=== PATIENT | male | born 2005 | race African-American/Black ===

== ENCOUNTER 2025-01-07 12:38 | Inpatient (IN) ==
--- NOTE | 2025-01-07 13:46 | Emergency Department Note ---
Impression & Plan Cellulitis of right hand ED Provider Note CHIEF COMPLAINT: Right hand pain, redness and swelling x 1 day HISTORY OF PRESENT ILLNESS: Patient is a healthy [id number] 19-year-old male who presents to the emergency department for evaluation of right hand pain, redness and swelling. He was playing basketball 2 days ago and was accidentally scratched on his hand by a friend's fingernail. The scratch was not very serious, he does note that he wiped off with an alcohol wipe and have been putting a Band-Aid over top of it. He has been washing his hands and showering normally. He was fine until yesterday, when he did dishes for his brother. About an hour after that, he notes the pain, redness and swelling in the right hand started. It progressively worsened and is now radiating towards his wrist. It hurts to move his fingers. He has aching in his forearm. He admits to fatigue and headache, but denies fever. No prior history of skin infections, abscesses, cellulitis or known MRSA. He has tried ice on the area. He rates his pain a 9/10. REVIEW OF SYSTEMS: Review of systems as per HPI. All other systems reviewed were negative. 10 systems reviewed. PMH: External medical records are reviewed and summarized as above/below. See Problem List. Vaccinations are up-to-date. SOCIAL HISTORY: Patient is a [employer] student from [place]. Lives in the dorm. PHYSICAL EXAM: Vital Signs: Reviewed Nurse's notes. CONSTITUTIONAL: Patient is a nontoxic, but uncomfortable appearing 19-year-old male laying on the gurney. Mildly tachycardic, but normotensive and afebrile. HEART: Regular rate and rhythm. LUNGS: Clear to auscultation. MUSCULOSKELETAL/INTEGUMENTARY: Examination of the right upper extremity notes a scabbed over abrasion on the dorsal aspect of the hand, over the fifth MCP. There is erythema, swelling and warmth of the dorsum of the hand, from the fifth metacarpal to the third metacarpal and is starting to involve the proximal aspect of the third, fourth and fifth fingers. The erythema/swelling extends onto the palmar aspect of the hand, ulnar side and to the dorsum of the wrist. There is palpable warmth in the dorsum and volar aspect of the forearm, with faint erythema noted dorsally, there is lymphangitic streaking on the volar aspect of the forearm, up to the biceps region. There is lymphangitic streaking up the dorsal aspect of the forearm toward the elbow. Right elbow is nontender to palpation. No elbow joint effusion is noted. Elbow flexion and extension and forearm pronation and supination are full. There is discomfort, but full flexion and extension at the wrist. Patient can flex fingers almost fully, cannot actively extend fully, but can be passively extended fully. Radial and ulnar pulses are easily palpable. Sensation light touch is intact. EMERGENCY DEPARTMENT COURSE: The patient was seen and assessed as above. External medical records are reviewed. He presents to the emergency department for evaluation of erythema, swelling and warmth of the right hand/wrist that is radiating up the forearm, after being scratched on the hand a couple of days ago. He notes that his symptoms actually just started yesterday after washing dishes. He does have a fairly extensive cellulitis involving the hand/wrist, with streaking up to the biceps region. IV lock was initiated. Laboratory studies were collected including CBC with differential, CMP, lactate and blood cultures x 2. He was treated with IV Toradol, Zofran and morphine for pain and given ceftriaxone 2 g IV with Bactrim DS [address] of the right hand with IV contrast was obtained. Patient reviewed with attending physician, Dr. Rios who agreed with the ED workup. I did take a surface wound culture from the wound on the right hand which is pending. Diagnostics, as interpreted by me: Laboratory studies: Marked leukocytosis with a white count of 27,300. No electrolyte imbalance, MELISSA or transaminitis. Lactate is normal. Cardiac monitoring: An order was placed for continuous cardiac monitoring. The monitor shows a NSR at a rate of 75 per my interpretation. Imaging studies: CT scan with IV contrast of the right hand notes soft tissue swelling, but no abscess, no osteomyelitis. Patient was reassessed. Laboratory and diagnostic imaging studies were reviewed with him. He was feeling improved with the IV morphine and Toradol, rated his pain a 6/10 on reassessment. Patient reviewed with ED transplant case manager. Given the location and degree of cellulitis involving the right hand/upper extremity, I did recommend admission/observation for IV antibiotics and the patient was agreeable. Consultation placed with the [facility] Hospitalist Service. Patient discussed with Dr. Rojas. Differential diagnosis: cellulitis, abscess, necrotizing fasciitis, infectious tenosynovitis, DVT, superficial thrombophlebitis, osteomyelitis, among others. Past Med/Surg History Problem List (Updated 01/07/25 @ 15:45 by James Awad) Cellulitis of right hand (Acute) Medical History No significant past medical history Surgical History No history of previous surgery Social History Smoking Status: Never smoker Second Hand Exposure: Yes; Do You Dip or Chew Tobacco: No; Hx Alcohol Use: Yes (few times per month) Alcohol type: beer, wine and hard liquor Hx Substance Use: No (denies) Preferred Language: Frisian Communication Ability: Effective Human Relations Teacher Required: No Beliefs That Will Affect Care: None Current Living Situation: Other Feels Safe at Home: Yes Safety Concerns: Feels Safe At This Time Assistive Devices: None Allergies Allergies Allergy/AdvReac Type Severity Reaction Status Date / Time amoxicillin Allergy Mild Rash Verified 01/07/25 17:07 Home Meds Home Medications Medication Instructions Recorded Confirmed multivitamin with minerals-folic 1 tab PO DAILY 01/07/25 01/07/25 acid 200 mcg chewable tablet (Multivitamin Gummies) Results & Data (ED) Vital Signs Vital Signs - 24 hr 01/07/25 12:48 01/07/25 14:04 01/07/25 14:04 Temperature 36.8 C Temperature Source Temporal Artery Scan Pulse Rate 97 H Pulse Rate [Finger] Respiratory Rate 16 Respiratory Effort / Characteristics Non-Labored Non-Labored Respiratory Depth Normal Normal Respiratory Pattern Regular Blood Pressure 124/67 Blood Pressure [Left Arm] Blood Pressure Mean 86 Blood Pressure Mean [Left Arm] Blood Pressure Position Sitting Blood Pressure Position [Left Arm] Pulse Oximetry 100 Oxygen Delivery Method Room Air Room Air Sepsis Recent Fever Within 48 Hours No Sepsis New/Unexplained Change in Mental Status N/A Sepsis Action Taken by Nursing No Action Required 01/07/25 16:00 Temperature Temperature Source Pulse Rate Pulse Rate [Finger] 75 Respiratory Rate 20 Respiratory Effort / Characteristics Non-Labored Respiratory Depth Normal Respiratory Pattern Regular Blood Pressure Blood Pressure [Left Arm] 132/81 Blood Pressure Mean Blood Pressure Mean [Left Arm] 98 Blood Pressure Position Blood Pressure Position [Left Arm] Lying Pulse Oximetry 100 Oxygen Delivery Method Room Air Sepsis Recent Fever Within 48 Hours Sepsis New/Unexplained Change in Mental Status Sepsis Action Taken by Senior Care Medications Current Medication List: was personally reviewed by me Laboratory Data Attestation: I reviewed the patient's lab results. 01/07/25 13:44 01/07/25 13:44 Lab Results 01/07/25 01/07/25 Range/Units 13:44 14:00 WBC 27.33 H (4.8-10.8) K/ul RBC 4.89 (4.70-6.10) M/uL Hgb 14.4 (14.0-18.0) g/dl Hct 42.9 (42.0-52.0) % MCV 87.7 (80.0-100.0) fL MCH 29.4 (25.0-34.0) pg MCHC 33.6 (32.0-36.0) g/dL RDW Std Deviation 42.5 (36.4-46.3) fL RDW Coeff of Diomedes 13.2 (11.5-14.5) % Plt Count 302 (130-400) K/uL MPV 9.1 L (9.4-12.4) fL Immature Gran % (Auto) 1.3 % Neut % (Auto) 83.6 % Lymph % (Auto) 7.8 % [place] % (Auto) 6.8 % Eos % (Auto) 0.1 % Baso % (Auto) 0.4 % Neut # (Auto) 22.88 H (1.40-6.50) K/uL Lymph # (Auto) 2.12 (1.20-3.40) K/uL [place] # (Auto) 1.85 H (0.11-0.59) K/uL Eos # (Auto) 0.03 (0.00-0.50) K/uL Baso # (Auto) 0.10 (0.00-0.20) K/uL Immature Gran # (Auto) 0.35 H (0.01-0.20) K/uL Sodium 136 (136-145) mmol/L Potassium 3.5 (3.5-5.1) mmol/L Chloride 101 (98-107) mmol/L Carbon Dioxide 27 (21-32) mmol/L Anion Gap 8 (3-11) BUN 14 (6-23) mg/dl Creatinine 1.06 (0.6-1.4) mg/dl Est Cr Clr Drug Dosing 130.3 ml/min eGFR 103.68 BUN/Creatinine Ratio 13.2 (10-20) Glucose 96 (70-99(Fasting)) mg/dl Lactate 1.4 (0.4-2.0) mmol/L Calcium 9.6 (8.6-10.3) mg/dl Total Bilirubin 1.1 H (0.2-1.0) mg/dl AST 30 (13-39) U/L ALT 43 (7-52) U/L Alkaline Phosphatase 46 (34-104) U/L Total Protein 8.3 (6.0-8.3) gm/dl Albumin 4.3 (3.4-5.0) gm/dl Globulin 4.0 (2.5-4.0) gm/dl Albumin/Globulin Ratio 1.1 (0.9-2) Administered Medications Discontinued Medications Ceftriaxone Sodium (Rocephin) 2,000 mg in 50 mls @ 100 mls/hr IV NOW STA Stop: 01/07/25 13:57 Last Infusion: 01/07/25 14:45 Dose: Infused Documented By: Admin: 01/07/25 14:13 Dose: 100 mls/hr Documented By: HEENA Ioversol (Optiray 320 100ml) 93 ml IV ONCE ONE Stop: 01/07/25 14:58 Last Admin: 01/07/25 14:58 Dose: 93 ml Documented By: OSVALDO Ketorolac Tromethamine (Ketorolac Tromethamine 15 Mg/Ml Vial) 15 mg IV NOW STA Stop: 01/07/25 13:53 Last Admin: 01/07/25 14:04 Dose: 15 mg Documented By: HEENA Metronidazole (Metronidazole 500 Mg Tab) 500 mg PO NOW STA; Protocol Stop: 01/07/25 16:11 Last Admin: 01/07/25 16:19 Dose: 500 mg Documented By: CANDY Morphine Sulfate (Morphine Sulfate 4 Mg/Ml 1 Ml Carp\Vial) 4 mg IV NOW STA Stop: 01/07/25 13:53 Last Admin: 01/07/25 14:03 Dose: 4 mg Documented By: HEENA Ondansetron HCl (Ondansetron Inj 2 Mg/Ml 2 Ml Vial) 4 mg IV NOW STA Stop: 01/07/25 13:53 Last Admin: 01/07/25 14:04 Dose: 4 mg Documented By: HEENA Trimethoprim/Sulfamethoxazole (Sulfamethoxazole/Trimethoprim Ds 800/160mg Tab) 2 tab PO NOW ONE Stop: 01/07/25 13:29 Last Admin: 01/07/25 14:13 Dose: 2 tab Documented By: HEENA Imaging Data Attestation: I personally reviewed and interpreted this imaging study as follows: Radiologist's Impression: Hand CT 01/07/25 13:28 CT hand RT w con CLINICAL HISTORY: EVAL ABSCESS COMPARISON STUDY: None FINDINGS: There is diffuse soft tissue edema at the dorsal wrist and hand without focal abscess. No hematoma seen. No fracture or dislocation. No osteomyelitis seen. No foreign body seen. IMPRESSION: No soft tissue abscess seen. ACT 112: Negative or not required by law. Electronically signed by: Jeancarlos Martinez M.D. 01/07/2025 3:29 PM Discharge Plan Visit Data Chief Complaint: Hand Injury/Pain Stated Complaint: R HAND INJURY ED Provider: Jeffy Rios ED Midlevel Provider: James Awad Discharge Problem: Cellulitis of right hand Patient Disposition: Admitted As Inpatient Discharge Instructions Interventions: ED Discharge Assessment Last Done: 01/07/25 17:27
[2025-01-07] MEDS: MoRPHine SULFATE 4 MG/ML 1 ML CARP\\VIAL IV STA (14:03)
[2025-01-07] MEDS: ONDANSETRON INJ 2 MG/ML 2 ML VIAL IV STA (14:04)
[2025-01-07] MEDS: KETOROLAC TROMETHAMINE 15 MG/ML VIAL IV STA (14:04)
[2025-01-07 14:07] LABS: Hematocrit (blood only) 42.9 % (42.0-52.0); Hemoglobin 14.4 g/dl (14.0-18.0); Mean Corpuscular Hemoglobin 29.4 pg (25.0-34.0); Mean Corpuscular Hgb Conc 33.6 g/dL (32.0-36.0); Mean Corpuscular Volume 87.7 fL (80.0-100.0); Mean Platelet Volume 9.1 fL (9.4-12.4); Platelet Count 302 K/uL (130-400); RDW Coefficient of Variation 13.2 % (11.5-14.5); RDW Standard Deviation 42.5 fL (36.4-46.3); Red Blood Count 4.89 M/uL (4.70-6.10); White Blood Count 27.33 K/ul (4.8-10.8)
[2025-01-07] MEDS: cefTRIAXone SODIUM 2,000 MG/50 ML BAG IV STA (14:13)
[2025-01-07] MEDS: SULFAMETHOXAZOLE/TRIMETHOPRIM DS 800/160MG TAB PO ONE (14:13)
[2025-01-07 14:29] LABS: Albumin Globulin Ratio 1.1 (0.9-2); Albumin Level 4.3 gm/dl (3.4-5.0); BUN Creatinine Ratio 13.2 (10-20); Bilirubin,Total 1.1 mg/dl (0.2-1.0); Calcium 9.6 mg/dl (8.6-10.3); Creatinine Clr Calc Pharmacy 130.3 ml/min; Potassium 3.5 mmol/L (3.5-5.1); Total Protein 8.3 gm/dl (6.0-8.3)
[2025-01-07 14:31] LABS: Basophils % (auto) 0.4 %; Eosinophils # (auto) 0.03 K/uL (0.00-0.50); Eosinophils % (auto) 0.1 %; Immature Granulocytes # (auto) 0.35 K/uL (0.01-0.20); Immature Granulocytes % (auto) 1.3 %; Lymphocytes # (auto) 2.12 K/uL (1.20-3.40); Lymphocytes % (auto) 7.8 %; Monocytes # (auto) 1.85 K/uL (0.11-0.59); Monocytes % (auto) 6.8 %; Neutrophils # (auto) 22.88 K/uL (1.40-6.50); Neutrophils % (auto) 83.6 %
[2025-01-07] MEDS: OPTIRAY 320 100ml IV ONE (14:58)
--- NOTE | 2025-01-07 15:30 | CT Scan Report ---
CT hand RT w con CLINICAL HISTORY: EVAL ABSCESS COMPARISON STUDY: None FINDINGS: There is diffuse soft tissue edema at the dorsal wrist and hand without focal abscess. No h ematoma seen. No fracture or dislocation. No osteomyelitis seen. No foreign body seen. IMPRESSION: No soft tissue abscess seen. ACT 112: Negative or not required by law. Electronically signed by: Jeancarlos Martinez M.D. 01/07/2025 3:29 PM
--- NOTE | 2025-01-07 16:16 | History & Physical Report ---
Date of Service January 07, 2025 Assessment & Plan (1) Cellulitis of right hand: Plan: Cellulitis of right hand in a 19 yo male from a human finger nail scratch admit to medical ordered clindamycin/rocephin for tomorrow ED ordered rocephin and bactrim will add flagy for today for anaerobic coverage. will monitor. Patient with leukocytosis. CT scan showed no abscess. History of Present Illness Chief Complaint: Right hand swelling Primary Care Provider: NO PCP Patient reports getting scratched by an opposing player's nail while playing basketball 2 days ago. He reports he was trying to keep it clean with rubbing alcohol. However he continued to use the hand for chores like washing dishes. He states the swelling and the pain has worsened where he is having pain moving his digits. Given this complication patient came to the ED. He admits to headache and fatigue. Allergies Allergy/AdvReac Type Severity Reaction Status Date / Time amoxicillin Allergy Mild Rash Verified 01/07/25 17:07 Home Medications Medication Instructions Recorded Confirmed Type multivitamin with minerals-folic 1 tab PO DAILY 01/07/25 01/07/25 History acid 200 mcg chewable tablet (Multivitamin Gummies) Past Med/Surg History Problem List Cellulitis of right hand (Acute) Medical History No significant past medical history Surgical History No history of previous surgery Social History Smoking Status: Never smoker Second Hand Exposure: Yes; Do You Dip or Chew Tobacco: No; Hx Alcohol Use: Yes (few times per month) Alcohol type: beer, wine and hard liquor Hx Substance Use: No (denies) Preferred Language: Arabic Communication Ability: Effective Marketing Ambassador Required: No Beliefs That Will Affect Care: None Current Living Situation: Other Feels Safe at Home: Yes Safety Concerns: Feels Safe At This Time Assistive Devices: None Review of Systems Constitutional: + fever and + malaise; no body aches Eyes: no blind spots Ear, Nose, Mouth, Throat: no ear pain and no tinnitus Respiratory: no cough Cardiovascular: no chest pain Gastrointestinal: no abdominal pain Musculoskeletal: no back pain Integumentary: no acne Neurologic: no gait abnormality Psychiatric: no behavioral changes Endocrine: no fatigue Physical Exam Constitutional: WD/WN, vitals as above Eyes: PERRL, conjunctivae normal, anicteric sclerae ENMT: external ear and nose normal, oropharynx normal Neck: trachea midline, no thyromegaly Respiratory: normal respiratory effort, lungs clear to auscultation Cardiovascular: RRR, no murmur, no edema Gastrointestinal (Abdomen): normal bowel sounds, soft, nontender, no hepatosplenomegaly Musculoskeletal: Right hand swelling Neurologic: PERRL, EOMI, accommodation nl, no face palsy, no dysarthria Psychiatric: A+Ox3, euthymic affect Results & Data Results & Data Vital Signs (Past 12 Hours) Vital Signs Temp Pulse Pulse Resp BP BP Pulse Ox 01/07/25 16:00 75 20 132/81 100 01/07/25 14:04 01/07/25 12:48 36.8 C 97 H 16 124/67 100 O2 Del Method 01/07/25 16:00 Room Air 01/07/25 14:04 Room Air 01/07/25 12:48 Room Air PG Care Time/CCT Total # of Minutes Spent Total Time Spent with Patient: Total time spent is greater than 50% in coordination of care (as documented) at patient's floor/unit and/or counseling patient: Coding Level of Care Code 92735 INT INP/OBS CARE 3/75MIN Diagnoses Cellulitis of right hand L03.113
[2025-01-07] MEDS: metroNIDAZOLE 500 MG TAB PO STA (16:19)
[2025-01-07] MEDS: ACETAMINOPHEN 325 MG TAB PO PRN (20:51)
[2025-01-08] MEDS: CLINDAMYCIN/D5W 600 MG/50 ML BAG IV SCH (02:09)
[2025-01-08 06:51] LABS: Hematocrit (blood only) 41.8 % (42.0-52.0); Hemoglobin 13.9 g/dl (14.0-18.0); Mean Corpuscular Hemoglobin 29.3 pg (25.0-34.0); Mean Corpuscular Hgb Conc 33.3 g/dL (32.0-36.0); Mean Platelet Volume 9.1 fL (9.4-12.4); Platelet Count 275 K/uL (130-400); Red Blood Count 4.75 M/uL (4.70-6.10); White Blood Count 21.82 K/ul (4.8-10.8)
[2025-01-08 07:17] LABS: BUN Creatinine Ratio 13.9 (10-20); C Reactive Protein 19.2 mg/dl (0-0.5); Calcium 9.1 mg/dl (8.6-10.3); Creatinine Clr Calc Pharmacy 120.1 ml/min; Potassium 3.8 mmol/L (3.5-5.1)
--- NOTE | 2025-01-08 10:51 | Orthopedic Consultation ---
Date of Consultation January 08, 2025 Assessment & Plan (1) Cellulitis of right hand: WBC trending downward from 27.88 to 21.82 CRP elevated at 19.20 Gram stain show Gram+ Cocci Wound cultures and blood cultures still pending Recommend continuation of IV ABX order by medicine service Pain control with IV or PO meds CT scan shows no abscess No surgical intervention indicated May need ID consult Ortho will sign off on patient. Supervising Physician Co-Signing Physician Notes I reviewed the patient's CT scan, discussed his case with Dr. Rojas, formulated the above plan, and performed the substantive portion of the visit. Agree with above note. Medical treatment for cellulitis. No surgery indicated. History of Present Illness Reason for Consultation: Right hand cellulitis Requesting Physician: Juan C Hurley MD Attending Physician: Hayder Rojas History of Present Illness This 19 yo M is seen for consultation for Right hand cellulitis. Patient states that he was playing basketball on Saturday and was accidentally scratched on his hand by a friend's fingernail. The scratch was not very serious, he does note that he wiped off with an alcohol wipe and have been putting a Band-Aid over top of it. He has been washing his hands and showering normally. He was fine until Saturday evening, when he did dishes for his brother. About an hour after that, he notes the pain, redness and swelling in the right hand started. It progressively worsened and is now radiating towards his wrist. It hurts to move his fingers. He has aching in his forearm. Patient states that he did initially have a headache and fatigue, which have resolved. He denies fever, chills, sweat, nausea or vomiting. He is also complaining that he has noticed so slight tingling in the tips of his finger, as time. It is not constant. No prior history of skin infections, abscesses, cellulitis or known MRSA. He has tried ice on the area. Allergies Allergy/AdvReac Type Severity Reaction Status Date / Time amoxicillin Allergy Mild Rash Verified 01/07/25 17:07 Home Medications Medication Instructions Recorded Confirmed Type multivitamin with minerals-folic 1 tab PO DAILY 01/07/25 01/07/25 History acid 200 mcg chewable tablet (Multivitamin Gummies) Patient History Medical History No significant past medical history Surgical History No history of previous surgery Social History Smoking Status: Never smoker Second Hand Exposure: Yes; Do You Dip or Chew Tobacco: No; Hx Alcohol Use: Yes (few times per month) Alcohol type: beer, wine and hard liquor Hx Substance Use: No (denies) Preferred Language: Lao Communication Ability: Effective Equipment Operator [employer] Required: No Beliefs That Will Affect Care: None Current Living Situation: Other Feels Safe at Home: Yes Safety Concerns: Feels Safe At This Time Assistive Devices: None Review of Systems Review of Systems: All systems reviewed & are unremarkable except as noted in Subjective Physical Exam Physical Exam: Right hand: 1 cm x 1 cm superficial abrasion over dorsal surface of 5th MCP. Edema, erythema and warmth from base of digits to wrist on dorsal surface. Limitations with wrist flexion and extension. Mild discomfort the passive ulnar and radial deviation, as well as with pronation and supination. Able to detect light sensation to touch over pads of digits. Appropriate finger dexterity. Able to resist compression of digits 2-5 and pincer grasp between thumb and index finger. Periph pulses 2+. NV intact. Results & Data Vital Signs (Past 12 Hours) Vital Signs Temp Pulse Resp BP Pulse Ox O2 Del Method 01/08/25 08:20 38.2 C H 87 18 144/80 H 98 Room Air Diagnostic Findings Laboratory Results WBC 21.82 K/ul (4.8-10.8) H 01/08/25 06:35 RBC 4.75 M/uL (4.70-6.10) 01/08/25 06:35 Hgb 13.9 g/dl (14.0-18.0) L 01/08/25 06:35 Hct 41.8 % (42.0-52.0) L 01/08/25 06:35 MCV 88.0 fL (80.0-100.0) 01/08/25 06:35 MCH 29.3 pg (25.0-34.0) 01/08/25 06:35 MCHC 33.3 g/dL (32.0-36.0) 01/08/25 06:35 RDW Std Deviation 42.0 fL (36.4-46.3) 01/08/25 06:35 RDW Coeff of Diomedes 13.0 % (11.5-14.5) 01/08/25 06:35 Plt Count 275 K/uL (130-400) 01/08/25 06:35 MPV 9.1 fL (9.4-12.4) L 01/08/25 06:35 Immature Gran % (Auto) 1.3 % 01/07/25 13:44 Neut % (Auto) 83.6 % 01/07/25 13:44 Lymph % (Auto) 7.8 % 01/07/25 13:44 [place] % (Auto) 6.8 % 01/07/25 13:44 Eos % (Auto) 0.1 % 01/07/25 13:44 Baso % (Auto) 0.4 % 01/07/25 13:44 Neut # (Auto) 22.88 K/uL (1.40-6.50) H 01/07/25 13:44 Lymph # (Auto) 2.12 K/uL (1.20-3.40) 01/07/25 13:44 [place] # (Auto) 1.85 K/uL (0.11-0.59) H 01/07/25 13:44 Eos # (Auto) 0.03 K/uL (0.00-0.50) 01/07/25 13:44 Baso # (Auto) 0.10 K/uL (0.00-0.20) 01/07/25 13:44 Immature Gran # (Auto) 0.35 K/uL (0.01-0.20) H 01/07/25 13:44 Sodium 134 mmol/L (136-145) L 01/08/25 06:35 Potassium 3.8 mmol/L (3.5-5.1) 01/08/25 06:35 Chloride 101 mmol/L (98-107) 01/08/25 06:35 Carbon Dioxide 27 mmol/L (21-32) 01/08/25 06:35 Anion Gap 6 (3-11) 01/08/25 06:35 BUN 16 mg/dl (6-23) 01/08/25 06:35 Creatinine 1.15 mg/dl (0.6-1.4) 01/08/25 06:35 Est Cr Clr Drug Dosing 120.1 ml/min 01/08/25 06:35 eGFR 94.02 01/08/25 06:35 BUN/Creatinine Ratio 13.9 (10-20) 01/08/25 06:35 Glucose 92 mg/dl (70-99(Fasting)) 01/08/25 06:35 Lactate 1.4 mmol/L (0.4-2.0) 01/07/25 14:00 Calcium 9.1 mg/dl (8.6-10.3) 01/08/25 06:35 Total Bilirubin 1.1 mg/dl (0.2-1.0) H 01/07/25 13:44 AST 30 U/L (13-39) 01/07/25 13:44 ALT 43 U/L (7-52) 01/07/25 13:44 Alkaline Phosphatase 46 U/L (34-104) 01/07/25 13:44 C-Reactive Protein 19.20 mg/dl (0-0.5) H 01/08/25 06:35 Total Protein 8.3 gm/dl (6.0-8.3) 01/07/25 13:44 Albumin 4.3 gm/dl (3.4-5.0) 01/07/25 13:44 Globulin 4.0 gm/dl (2.5-4.0) 01/07/25 13:44 Albumin/Globulin Ratio 1.1 (0.9-2) 01/07/25 13:44 Procalcitonin 2.61 ng/ml (0-0.5) H 01/08/25 06:[address] 01/07/25 13:28 CT hand RT w con CLINICAL HISTORY: EVAL ABSCESS COMPARISON STUDY: None FINDINGS: There is diffuse soft tissue edema at the dorsal wrist and hand without focal abscess. No hematoma seen. No fracture or dislocation. No osteomyelitis seen. No foreign body seen. IMPRESSION: No soft tissue abscess seen. ACT 112: Negative or not required by law. Electronically signed by: Jeancarlos Martinez M.D. 01/07/2025 3:29 PM
--- NOTE | 2025-01-08 11:23 | Hospitalist Progress Note ---
Date of Service January 08, 2025 Assessment & Plan (1) Cellulitis of right hand: Plan: Cellulitis of right hand in a 19 yo male from a human finger nail scratch admit to medical Increased dose of clindamycin to 900 mg IV q8h continue rocephin daily. Leukocytosis is improving. but remains over 21k discussed with ortho, no intervention required. CT scan showed no abscess. will add probiotics. Admission and Anticipated Discharge Date Admission Date: January 07, 2025 Subjective 19 y male asking when he can be discharged. He reports he is able to move his fingers more than yesterday and his pain is better today. Physical Exam Constitutional: WD/WN, vitals as above Eyes: PERRL, conjunctivae normal, anicteric sclerae ENMT: external ear and nose normal, oropharynx normal Neck: trachea midline, no thyromegaly Respiratory: normal respiratory effort, lungs clear to auscultation Cardiovascular: RRR, no murmur, no edema Musculoskeletal: Right hand remains with swelling along the dorsal aspect of the hand. Normal sensation. Apear to move fingers more freely. Results & Data Results & Data Vital Signs (Past 12 Hours) Vital Signs Temp Pulse Resp BP Pulse Ox O2 Del Method 01/08/25 08:20 38.2 C H 87 18 144/80 H 98 Room Air PG Care Time/CCT Total # of Minutes Spent Total Time Spent with Patient: Total time spent is greater than 50% in coordination of care (as documented) at patient's floor/unit and/or counseling patient: Coding Level of Care Code 28193 SUB INP/OBS CARE 3/50MIN Diagnoses Cellulitis of right hand L03.113
[2025-01-08] MEDS: CLINDAMYCIN/D5W 900 MG/50 ML BAG IV SCH (11:41)
[2025-01-08] MEDS: ADVANCED PROBIOTIC 625 MG CAPSULE PO SCH (12:34)
[2025-01-08] MEDS: cefTRIAXone SODIUM 2,000 MG/50 ML BAG IV SCH (13:58)
[2025-01-09 07:07] LABS: Hemoglobin 13.1 g/dl (14.0-18.0); Mean Corpuscular Hemoglobin 29.4 pg (25.0-34.0); Mean Corpuscular Hgb Conc 33.6 g/dL (32.0-36.0); Mean Corpuscular Volume 87.4 fL (80.0-100.0); Mean Platelet Volume 9.7 fL (9.4-12.4); Platelet Count 289 K/uL (130-400); RDW Coefficient of Variation 12.9 % (11.5-14.5); RDW Standard Deviation 41.1 fL (36.4-46.3); Red Blood Count 4.46 M/uL (4.70-6.10); White Blood Count 18.15 K/ul (4.8-10.8)
[2025-01-09 07:39] LABS: BUN Creatinine Ratio 11.9 (10-20); C Reactive Protein 16.66 mg/dl (0-0.5); Calcium 9.1 mg/dl (8.6-10.3); Creatinine Clr Calc Pharmacy 164.5 ml/min; Potassium 3.8 mmol/L (3.5-5.1)
[2025-01-09] MEDS ORDERED: DAPTOmycin 500 MG in SYRINGE 0 ML IV SCH (10:00)
[2025-01-09] MEDS: ceFAZolin 2000MG 2,000 MG/15 ML SYR IV SCH (10:40)
--- NOTE | 2025-01-09 11:03 | Orthopedic Progress Note ---
Date of Service January 09, 2025 Assessment & Plan (1) Cellulitis of right hand: Plan: Recommend continuation of IV ABX by medicine service Pain control CT scan shows no abscess No surgical intervention indicated. Communicated this to the patient. May need ID consult Ortho will sign off on patient. Admission and Anticipated Discharge Date Admission Date: January 07, 2025 Subjective Patient seen and examined on a.m. rounds. He reports his hands feeling a lot better today. He is able to move his fingers more than he was yesterday. He is wondering how soon he can go home from the hospital. Denies fevers or chills. Physical Exam Physical Exam: Right hand exam reveals the patient have swelling over the dorsum of the hand. He is able to actively extend the fingers to full extension. Cannot quite make a full composite fist with the fingertips about 1 and half centimeters off the palm. Fires wrist extensors and wrist flexors. Neurovascular intact. Small skin abrasion near the fifth metacarpal head without any drainage. Results & Data Vital Signs (Past 12 Hours) Vital Signs Temp Pulse Resp BP Pulse Ox O2 Del Method 01/09/25 07:19 36.6 C 50 L 16 121/83 98 Room Air Laboratory Results White cell count and CRP trending downward. Blood cultures negative to date.
--- NOTE | 2025-01-09 23:16 | Hospitalist Progress Note ---
Date of Service January 09, 2025 Assessment & Plan (1) Cellulitis of right hand: Plan: Cellulitis of right hand in a 19 yo male from a human finger nail scratch admit to medical cultures came back and grew MSSA but resistat to clindamycin. will switch to cefazolin, stop rocephin Leukocytosis is improving. discussed with ortho, no intervention required. CT scan showed no abscess. will add probiotics to limit c diff. Admission and Anticipated Discharge Date Admission Date: January 07, 2025 Subjective 19 yo male reports no new symptoms. Physical Exam Constitutional: WD/WN, vitals as above Eyes: PERRL, conjunctivae normal, anicteric sclerae ENMT: external ear and nose normal, oropharynx normal Neck: trachea midline, no thyromegaly Respiratory: normal respiratory effort, lungs clear to auscultation Cardiovascular: RRR, no murmur, no edema Gastrointestinal (Abdomen): normal bowel sounds, soft, nontender, no hepatosplenomegaly Neurologic: PERRL, EOMI, accommodation nl, no face palsy, no dysarthria Psychiatric: A+Ox3, euthymic affect Results & Data Results & Data Vital Signs (Past 12 Hours) Vital Signs Temp Pulse Resp BP Pulse Ox O2 Del Method 01/09/25 22:22 37.2 C 77 18 135/65 Room Air 01/09/25 15:48 37.2 C 64 16 133/75 98 Room Air PG Care Time/CCT Total # of Minutes Spent Total Time Spent with Patient: Total time spent is greater than 50% in coordination of care (as documented) at patient's floor/unit and/or counseling patient: Coding Level of Care Code 91986 SUB INP/OBS CARE 3/50MIN Diagnoses Cellulitis of right hand L03.113
[2025-01-10 06:26] LABS: Hematocrit (blood only) 39.4 % (42.0-52.0); Hemoglobin 13.4 g/dl (14.0-18.0); Mean Corpuscular Hemoglobin 29.8 pg (25.0-34.0); Mean Corpuscular Volume 87.6 fL (80.0-100.0); Mean Platelet Volume 9.4 fL (9.4-12.4); Platelet Count 321 K/uL (130-400); RDW Standard Deviation 42.1 fL (36.4-46.3); White Blood Count 9.88 K/ul (4.8-10.8)
[2025-01-10 06:47] LABS: BUN Creatinine Ratio 11.5 (10-20); C Reactive Protein 10.3 mg/dl (0-0.5); Creatinine Clr Calc Pharmacy 177.1 ml/min; Potassium 3.7 mmol/L (3.5-5.1)
[2025-01-10 16:10] VITALS: RESP 16; O2SAT 99
--- NOTE | 2025-01-10 16:42 | Hospitalist Progress Note ---
Date of Service January 10, 2025 Assessment & Plan (1) Cellulitis of right hand: Plan: Cellulitis of right hand in a 19 yo male from a human finger nail scratch admit to medical cultures came back and grew MSSA but resistat to clindamycin. will switch to cefazolin, stop rocephin Leukocytosis is improving and normalized discussed with ortho, no intervention required. CT scan showed no abscess. will add probiotics to limit c diff. Swelling and inflammatory markers have decreased. Will continue to monitor. Updated patient's mother at bedside Admission and Anticipated Discharge Date Admission Date: January 07, 2025 Subjective Patient reports no new symptoms. He reports improved hand swelling Physical Exam Constitutional: WD/WN, vitals as above Eyes: PERRL, conjunctivae normal, anicteric sclerae ENMT: external ear and nose normal, oropharynx normal Neck: trachea midline, no thyromegaly Respiratory: normal respiratory effort, lungs clear to auscultation Cardiovascular: RRR, no murmur, no edema Gastrointestinal (Abdomen): normal bowel sounds, soft, nontender, no hepatosplenomegaly Neurologic: PERRL, EOMI, accommodation nl, no face palsy, no dysarthria Psychiatric: A+Ox3, euthymic affect Results & Data Results & Data Vital Signs (Past 12 Hours) Vital Signs Temp Pulse Resp BP Pulse Ox O2 Del Method 01/10/25 16:09 36.6 C 61 16 125/72 99 Room Air 01/10/25 08:26 36.5 C 64 17 124/70 98 Room Air PG Care Time/CCT Total # of Minutes Spent Total Time Spent with Patient: Total time spent is greater than 50% in coordination of care (as documented) at patient's floor/unit and/or counseling patient: Coding Level of Care Code 29669 SUB INP/OBS CARE 3/50MIN Diagnoses Cellulitis of right hand L03.113
[2025-01-11 06:14] LABS: Hemoglobin 12.8 g/dl (14.0-18.0); Mean Corpuscular Hemoglobin 28.8 pg (25.0-34.0); Mean Corpuscular Hgb Conc 32.8 g/dL (32.0-36.0); Mean Corpuscular Volume 87.6 fL (80.0-100.0); Mean Platelet Volume 9.3 fL (9.4-12.4); Platelet Count 335 K/uL (130-400); RDW Coefficient of Variation 12.7 % (11.5-14.5); RDW Standard Deviation 40.7 fL (36.4-46.3); Red Blood Count 4.45 M/uL (4.70-6.10); White Blood Count 6.95 K/ul (4.8-10.8)
[2025-01-11 06:37] LABS: BUN Creatinine Ratio 13.4 (10-20); C Reactive Protein 5.38 mg/dl (0-0.5); Calcium 9.1 mg/dl (8.6-10.3); Creatinine Clr Calc Pharmacy 168.5 ml/min; Potassium 4.1 mmol/L (3.5-5.1)
[2025-01-11 07:12] LABS: Basophils # (auto) 0.11 K/uL (0.00-0.20); Basophils % (auto) 1.6 %; Eosinophils # (auto) 0.53 K/uL (0.00-0.50); Eosinophils % (auto) 7.6 %; Immature Granulocytes # (auto) 0.04 K/uL (0.01-0.20); Immature Granulocytes % (auto) 0.6 %; Lymphocytes # (auto) 2.53 K/uL (1.20-3.40); Lymphocytes % (auto) 36.4 %; Monocytes # (auto) 0.78 K/uL (0.11-0.59); Monocytes % (auto) 11.2 %; Neutrophils # (auto) 2.96 K/uL (1.40-6.50); Neutrophils % (auto) 42.6 %
[2025-01-11 07:48] VITALS: BP 117/64; PULSE 57; TEMP 97.7
--- NOTE | 2025-01-11 09:39 | Infectious Disease Consult ---
Date of Consultation January 11, 2025 Assessment & Plan (1) Cellulitis of right hand: Plan #R hand cellulitis with MSSA 19 yo M who presented on 01/07 with R hand swelling and pain after being scratched by an opposing player's nail while playing basketball 2 days prior, admitted with MSSA cellulitis. MRI hand on 01/11 with extensive dorsal cellulitis of the hand with associated phlegmonous change, no drainable abscess, no tenosynovitis or evidence of acute osteomyelitis. Pt with improving swelling and ROM, resolution of leukocytosis. Recommendations: -Can discharge on cephalexin 500 mg PO q6h for another 7 days (Mother notes he has tolerated cephalexin previously) Discussed with Dr. Rojas. Will sign off. Consultation Information Consultation was provided via telemedicine using two-way real-time interactive telecommunication between the patient and the telemedicine provider. For the duration of the visit, the provider was performing the assessment from a different facility than the patient. This includesuse of bluetooth stethoscope forauscultationperformed by the telepresenter that the telemedicine provider can hear if described in the physical exam. Health Education Director contact information: Please call [facility] . (Phone Number For Physician Use Only) After establishing a telemedicine visit, patient was: Patient was verified with two unique identifiers, Patient/authorized rep acknowledged consent and understanding and Gave permission to continue telehealth session Time Spent with Patient: Initial => 40 min History of Present Illness Reason for Consultation: R hand cellulitis Attending Physician: Hayder Rojas History of Present Illness 19 yo M who presented on 01/07 with R hand swelling and pain after being scratched by an opposing player's nail while playing basketball 2 days prior. On presentation, Tmax 37.6. Labs with WBC 21.82, CRP 19.2, procalcitonin 2.61. CT R hand w contrast showed no soft tissue abscess. Pt started on clindamycin and ceftriaxone. Wound culture obtained and grew MSSA. Ortho consulted, felt no surgical intervention needed. Antibiotics switched to cefazolin on 01/09. Pt notes improvement, with improved ability to make a fist. MRI hand on 01/11 with extensive dorsal cellulitis of the hand with associated phlegmonous change, no drainable abscess, no tenosynovitis or evidence of acute osteomyelitis. Pt with history of rash with amoxicillin as a child. Mother reports he tolerated cephalexin before. Allergies Allergy/AdvReac Type Severity Reaction Status Date / Time amoxicillin Allergy Mild Rash Verified 01/07/25 17:07 Home Medications Medication Instructions Recorded Confirmed Type multivitamin with minerals-folic 1 tab PO DAILY 01/07/25 01/07/25 History acid 200 mcg chewable tablet (Multivitamin Gummies) Patient History Medical History No significant past medical history Surgical History No history of previous surgery Social History Smoking Status: Never smoker Second Hand Exposure: Yes; Do You Dip or Chew Tobacco: No; Hx Alcohol Use: Yes (few times per month) Alcohol type: beer, wine and hard liquor Hx Substance Use: No (denies) Preferred Language: Indian Communication Ability: Effective Mailroom Courier Required: No Beliefs That Will Affect Care: None Current Living Situation: Other Feels Safe at Home: Yes Safety Concerns: Feels Safe At This Time Assistive Devices: None Review of System A complete ROS was performed and is negative except as mentioned in the HPI. Physical Exam Physical Exam: GEN: Well-appearing, in NAD. SKIN: R hand swelling, unable to make a tight fist, but improved ROM NEURO: Alert and oriented. Answers all questions appropriately. Speech not slurred. PSYCH: Normal mood, affect appropriate. Results & Data Vital Signs (Past 12 Hours) Vital Signs Temp Pulse Resp BP Pulse Ox O2 Del Method 01/11/25 07:46 36.5 C 57 L 16 117/64 99 Room Air Laboratory Results Short CBC 01/11/25 Range/Units 05:47 WBC 6.95 (4.8-10.8) K/ul Hgb 12.8 L (14.0-18.0) g/dl Hct 39.0 L (42.0-52.0) % Plt Count 335 (130-400) K/uL BMP 01/11/25 05:47 Sodium 136 Potassium 4.1 Chloride 104 Carbon Dioxide 27 BUN 11 Creatinine 0.82 Glucose 89 Calcium 9.1 Diagnostic Findings Hand MRI 01/11/25 08:26 MR hand RT wo/w con HISTORY: 19 years-old Male right hand celulitis acute pain and swelling of the right hand COMPARISON: Right hand CT 01/07/2025 TECHNIQUE: Multiplanar multisequence MRI of the right hand was obtained with and without IV contrast. FINDINGS: There is extensive enhancing subcutaneous edema within the dorsal hand, most pronounced medially which also extends into the wrist soft tissues. Ill-defined locules of fluid are also noted with peripheral enhancement. No drainable fluid collection. No definite tenosynovitis, acute tendon or ligamentous tear. Normal bone marrow signal. No acute fracture, dislocation, osseous erosion or suspicious bone lesion. IMPRESSION: 1. Extensive dorsal cellulitis of the hand with associated phlegmonous change. 2. No drainable abscess. 3. No tenosynovitis or evidence of acute osteomyelitis. ACT 112: Negative or not required by law. The above report was generated using voice recognition software. It may contain grammatical, syntax or spelling errors. Electronically signed by: Simone Armenta M.D. 01/11/2025 11:25 AM Medications Administered Current Inpatient Medications Acetaminophen (Acetaminophen 325 Mg Tab) 650 mg PO Q4H PRN PRN Reason: pain/fever Stop: 02/06/25 16:15 Last Admin: 01/09/25 03:20 Dose: 650 mg Cefazolin Sodium (Ancef 2000mg) 2,000 mg in 15 mls @ 3.75 mls/min IV Q8H [facility] Stop: 01/16/25 09:59 Last Admin: 01/11/25 10:50 Dose: 3.75 mls/min Lactobacillus Acidophilus (Advanced Probiotic 625 Mg Capsule) 1,250 mg PO DAILY [facility] Stop: 02/07/25 11:29 Last Admin: 01/11/25 10:50 Dose: 1,250 mg
[2025-01-11] MEDS: GADOBUTROL 65ML VIAL IV ONE (10:12)
--- NOTE | 2025-01-11 11:28 | Magnetic Resonance Report ---
MR hand RT wo/w con HISTORY: 19 years-old Male right hand celulitis acute pain and swelling of the right hand COMPARISON: Right hand CT 01/07/2025 TECHNIQUE: Multiplanar multisequence MRI of the right hand was obtained with and without IV contrast. FINDINGS: There is extensive enhancing subcutaneous edema within the dorsal hand, most pronounced medially whic h also extends into the wrist soft tissues. Ill-defined locules of fluid are also noted with peripher al enhancement. No drainable fluid collection. No definite tenosynovitis, acute tendon or ligamentous tear. Normal bone marrow signal. No acute fracture, dislocation, osseous erosion or suspicious bone lesion. IMPRESSION: 1. Extensive dorsal cellulitis of the hand with associated phlegmonous change. 2. No drainable abscess. 3. No tenosynovitis or evidence of acute osteomyelitis. ACT 112: Negative or not required by law. The above report was generated using voice recognition software. It may contain grammatical, syntax o r spelling errors. Electronically signed by: Simone Armenta M.D. 01/11/2025 11:25 AM
--- NOTE | 2025-01-11 14:29 | Discharge Summary ---
Discharge Summary Date of Service January 11, 2025 Principal Dx & Hospital Course #1 = Principal Diagnosis (1) Cellulitis of right hand: Cellulitis of right hand in a 19 yo male from a human finger nail scratch admit to medical cultures came back and grew MSSA but resistat to clindamycin. will switch to cefazolin, stop rocephin Leukocytosis is improving and normalized discussed with ortho, no intervention required. CT scan showed no abscess. will add probiotics to limit c diff. Swelling and inflammatory markers have decreased. Will continue to monitor. Updated patient's mother at bedside Admission HPI Per Admitting Provider Patient reports getting scratched by an opposing player's nail while playing basketball 2 days ago. He reports he was trying to keep it clean with rubbing alcohol. However he continued to use the hand for chores like washing dishes. He states the swelling and the pain has worsened where he is having pain moving his digits. Given this complication patient came to the ED. He admits to headache and fatigue. Discharge Plan Discharge Items Patient Disposition: Home - Self-Care Reason For Visit: HAND CELLULITIS Discharge Diagnosis: hand cellulitis Activity: Resume your previous activity Non-emergency contact: Primary Care Provider Call non-emergency contact if: you have any medication questions Follow-up/Referrals: PCP,ERNESTO [Primary Care Provider] - Diet: Regular Addtl Attending Provider Instructions: Continue antibiotics until done. [place] schedule: 8:00 am, 200 pm 8 pm, 2 am Practical schedule: 7 am, 1 pm, 6 pm, 11 pm Consistency matters: do not miss a dose. Use your phone for alarms to remind you of dose. Keep your hand elevated and avaoid overuse. If symptoms worsen within 48-72, contact your provider or go to [facility]. Pending Studies at Discharge: No Stand-Alone Forms: My [facility] [place], Work/School Release, Smoking Cessation Medications and DC Order Prescriptions: New cephalexin 500 mg tablet 500 mg PO Q6H 10 Days Qty: 40 0RF Continued multivit with min-folic acid [Multivitamin Gummies] 200 mcg Tablet,Chewable 1 tab PO DAILY Discharge Orders: Discharge Order (Routine); Ordered 01/11/25 Ordered By: Hayder Rojas Admission Data Admit Date/Time: 01/07/25 16:17 Attending Provider: Hayder Rojas Admit Provider: Hayder Rojas Primary Care Provider: PCP,NO Other Providers: Hayder Rojas; [facility] Stay Data Consultations 01/07/25 15:47 ED Decision to Admit Stat 01/08/25 22:53 Consult Orthopedic Surgery Routine 01/11/25 08:31 Consult Infectious Diseases Routine Diagnostic Imagining Performed 01/07/25 13:28 CT hand RT w con Stat 01/11/25 08:26 MR hand RT wo/w con Urgent Pending Results Patient Have Any Pending Studies at Discharge: No Discharge Instructions Given to Patient (Per Discharging Provider) Continue antibiotics until done. [place] schedule: 8:00 am, 200 pm 8 pm, 2 am Practical schedule: 7 am, 1 pm, 6 pm, 11 pm Consistency matters: do not miss a dose. Use your phone for alarms to remind you of dose. Keep your hand elevated and avaoid overuse. If symptoms worsen within 48-72, contact your provider or go to [facility]. Coding Diagnoses Cellulitis of right hand L03.113
[2025-01-11] MEDS: cephALEXin 500 MG CAP PO STA (15:03)
== END 2025-01-11 15:20 | disposition home or self-care (01) | DRG 603 ==
LOC: ED 12:38 → 3E 16:17